=== PATIENT | female | born 1990 | race Caucasian/White ===

== ENCOUNTER 2016-11-30 05:27 | Inpatient (IN) | payer OTHER ==
[~2016-11-30] VITALS: Ht 170.2 cm; Wt 68.0 kg
[2016-11-30 06:07] LABS: HEMOGLOBIN 10.8 gm/dl (12.3-15.3); RED BLOOD COUNT 3.65 M/UL (4.00-5.10); WHITE BLOOD COUNT 7.8 K/UL (4.5-11.0)
[2016-12-01 06:46] LABS: HEMOGLOBIN 9.3 gm/dl (12.3-15.3)
== END 2016-12-01 17:42 | disposition home or self-care (01) | DRG 775 ==
LOC: OB 05:27
PROVIDERS: Obstetrics & Gynecology; ADMIT Obstetrics & Gynecology
PROC: 10E0XZZ Delivery of Products of Conception, External Approach (ICD-10-PCS; principal; 2016-11-30)
PROC: 10907ZC Drainage of Amniotic Fluid, Therapeutic from Products of Conception, Via Natural or Artificial Opening (ICD-10-PCS; 2016-11-30)
PROC: 3E033VJ Introduction of Other Hormone into Peripheral Vein, Percutaneous Approach (ICD-10-PCS; 2016-11-30)
PROC: 3E0234Z Introduction of Serum, Toxoid and Vaccine into Muscle, Percutaneous Approach (ICD-10-PCS; 2016-11-30)
DX: O36.5930 Maternal care for other known or suspected poor fetal growth, third trimester, not applicable or unspecified (principal); Z3A.38 38 weeks gestation of pregnancy; Z37.0 Single live birth; Z23 Encounter for immunization; O99.333 Smoking (tobacco) complicating pregnancy, third trimester; F17.210 Nicotine dependence, cigarettes, uncomplicated; O36.0990 Maternal care for other rhesus isoimmunization, unspecified trimester, not applicable or unspecified; O98.319 Other infections with a predominantly sexual mode of transmission complicating pregnancy, unspecified trimester; A60.00 Herpesviral infection of urogenital system, unspecified; O26.899 Other specified pregnancy related conditions, unspecified trimester; K90.0 Celiac disease
CPT/HCPCS: 36415; 81001; 82800; 85014; 85018; 85025; 85461; 86850; 86900; 86901; 90715; J2590; J2790; J7120

== ENCOUNTER 2021-11-14 06:49 | Emergency (ER) | payer OTHER ==
[~2021-11-14 06:49] MED LIST: IBUPROFEN600 MG PO; PENVEE K 500 M500 MG PO; Viscous Lidocaine 2%
== END 2021-11-14 07:36 | disposition home or self-care (01) ==
LOC: ER1 06:49
DX: U07.1 COVID-19 (principal)
CPT/HCPCS: 99283